=== PATIENT | female | born 1980 | race Caucasian/White ===

== ENCOUNTER 2019-12-04 05:15 | Day surgery (SDC) | payer MEDICAID ==
[2019-12-02 15:20] LABS: BASOPHILS 0.3 % (0-2); EOSINOPHILS 2.5 % (0-7); HEMATOCRIT 36.8 % (36.0-48.0); HEMOGLOBIN 11.7 g/dL (12-16); IMMATURE GRANULOCYTES 0.5 % (0-5); LYMPHOCYTES 20.8 % (15-50); MCH 26.2 pg (26.0-34.0); MCHC 31.8 g/dL (31.0-37.0); MCV 82.3 fL (80.0-100.0); MEAN PLATELET VOLUME 9.4 fL (7.4-10.4); MONOCYTES 8.3 % (2-11); NEUTROPHILS 67.6 % (40-80); PLATELET COUNT 339 10x3/uL (130-400); RBC 4.47 10x6/uL (4.00-5.40); RDW 14.2 % (11.5-14.5); WBC 12.9 10x3/uL (4.8-10.8)
[2019-12-02 15:37] LABS: CALC OSMOLALITY 279 mosm/kg (275-300); CALCIUM 8.2 mg/dL (8.5-10.1); CARBON DIOXIDE 28.8 mmol/L (21.0-32.0); CHLORIDE - SERUM 103 mmol/L (98-107); CREATININE - SERUM 0.8 mg/dL (0.6-1.3); GLUCOSE 95 mg/dL (74-106); POTASSIUM - SERUM 3.7 mmol/L (3.5-5.1); SODIUM 141 mmol/L (136-145); UREA NITROGEN 11 mg/dL (7-18); eGFR NON AFRICAN AMERICAN 85 mL/min (90-120)
[2019-12-04] VITALS (11 sets, daily range): BP systolic 91–109; BP diastolic 43–60; Ht 180.3 cm; Wt 125.5 kg
[~2019-12-04] VITALS: Ht 180.3 cm; Wt 125.5 kg
--- NOTE | ~2019-12-04 | OP ---
PATIENT NAME: VASU KEITH MEDICAL RECORD: [id number] :84 LOCATION:[place] [id number] ADMISSION DATE: SURGEON: SHONDA GODOY DO DATE OF OPERATION: 12/05/2019 PREOPERATIVE DIAGNOSIS: Abnormal uterine bleeding. POSTOPERATIVE DIAGNOSIS: Abnormal uterine bleeding. PRIMARY SURGEON: Shonda Godoy DO SITE PROMOTION AGENT SURGEON: Dr. Ballesteros. ANESTHESIA: General ET tube. PROCEDURE: Total laparoscopic hysterectomy and bilateral salpingectomy. FINDINGS: The patient with extensive sores noted on her abdomen and legs. Due to this, a drug screen was performed. The patient is previous drug user and states had been clean since February. Urine drug screen positive for amphetamine, benzos and THC. After general anesthesia was administered. Normal-appearing external genitalia. Normal-appearing vaginal vault. Uterus sounded to 9 cm. Normal appearing uterus, fallopian tubes with a previous tubal ligation noted. Normal appearing bilateral ovaries. SPECIMENS: Uterine portion of bilateral fallopian tubes and cervix. ESTIMATED BLOOD LOSS: 50 cc. IV FLUID: 1800 cc. URINE OUTPUT: 250 cc urine and 250 cc milk. COMPLICATIONS: None. CONDITION: Stable. PROCEDURE IN DETAIL: The risks, benefits, alternatives, and indications of the procedure were discussed with the patient. She voiced understanding of the procedure and signed a consent. She was taken to the OR where general anesthesia was administered and found to be adequate. She was placed in the dorsal lithotomy position. She was prepped and draped in the normal sterile fashion. A speculum was placed in the posterior aspect of the vagina. Single tooth tenaculum was used to grasp the anterior lip of the cervix. The uterus was sounded to 9 cm. The cervix was further dilated to accommodate the VCare uterine manipulator and the uterine manipulator was placed without incident. All other instruments were removed from the vagina. A Teran catheter was placed under sterile conditions. Gloves were changed and attention was then turned to the abdomen. The abdomen was elevated. Marcaine was placed in the umbilical fold and a 5-mm port was placed with the laparoscope for visualization. Pneumoperitoneum was achieved to 15 mmHg. An intraabdominal survey revealed extensive adhesions of the bladder to the lower uterine segment of the uterus. A 5-mm port was placed under direct laparoscopic visualization in the right lower quadrant 2 cm superior and 2 cm medial to the right ASIS. An 11-mm port was placed in the left lower quadrant 2 cm superior and 2 cm medial to the left OPERATIVE REPORT [id number] VASU KEITH under direct laparoscopic visualization without difficulty. The uterus was elevated out of the abdomen. The patient was placed in steep Trendelenburg position. The uterine cornua was grasped with an atraumatic grasper and the uterus was gently retracted to the opposite side. The ureter was seen across the external iliac artery and pelvic brim with peristalsis. The left fimbria was removed using the Thunderbeat device with good hemostasis and sent to pathology. The left round ligament was then coagulated and cut with the Thunderbeat device. The vesicouterine peritoneum was opened with the Thunderbeat as well as the EndoShears due to extensive adhesions of the bladder to the lower uterine segment. The right fallopian tube was then removed with the Thunderbeat device and the right round ligament was coagulated and cut and the vesicouterine peritoneum was opened on that side. Due to the extensive adhesions, need for a fourth port was determined and a 5-mm port was placed 2 cm superior to the pubic ramus in the midline with the laparoscope for visualization. The bladder was dissected off the lower uterine segment with the combination of the Thunderbeat device as well as the EndoShears. Due to need for delineation of the bladder edge, the bladder was filled with sterile milk and no bladder leak was noted after dissection off the lower uterine segment. The uterine vessels were then identified along the uterus and a Thunderbeat device was used to coagulate and cut the uterine vessels. With the VCare uterine manipulator pushing the uterus into the pelvis, the cervical vaginal junction was delineated by the colpotomy ring, which was apparent through the tissue. The vagina was entered with the PK device and incised circumferentially along the cervicovaginal junction. Uterosacral and cardinal ligament complex of the vagina were completely detached from the cervix. Bleeding spots were coagulated and the uterus was removed through the vagina. The vaginal cuff was closed laparoscopically with 0 Stratafix suture and cT2 needle in a running fashion with good hemostasis. The pelvis was irrigated with warm sterile water and good hemostasis was noted. The patient was taken out of Trendelenburg position and good hemostasis was noted at the low insufflation of pressure. All instruments were removed from the abdomen. The abdominal incisions were closed with 3-0 Monocryl and Dermabond covering. The patient tolerated the procedure well. All counts were correct times 2. The patient was awakened and taken to the recovery room in stable condition. TRANSINT:[id number] Voice Confirmation ID: [id number] DOCUMENT ID: [id number] SHONDA GODOY DO CC: [id number] DICTATION DATE: 12/05/19 104 DIRECTOR TRANSLATIONAL: 12/05/19 1212 [place] [id number] [place] [id number]
[~2019-12-04 05:15] MED LIST: CELEXA40 MG PO; IBUPROFEN800 MG PO; LISINOPRIL5 MG PO; NEURONTIN600 MG PO
[2019-12-04 06:24] LABS: HCG URINE NEGATIVE (NEGATIVE)
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
[2019-12-04 08:28] LABS: UDS - AMPHET POSITIVE QUAL (NEGATIVE); UDS - BARB NEGATIVE QUAL (NEGATIVE); UDS - BENZO POSITIVE QUAL (NEGATIVE); UDS - COCAINE NEGATIVE QUAL (NEGATIVE); UDS - OPIATE NEGATIVE QUAL (NEGATIVE); UDS - PCP NEGATIVE QUAL (NEGATIVE); UDS - THC POSITIVE QUAL (NEGATIVE)
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
--- NOTE | 2019-12-04 13:00 | NUR ---
PT LYING IN SEMI-CRAIG'S POSITION IN BED. EYES CLOSED. RESP NON-LABORED. VSS. PT NOT DISTURBED TO ALLOW FOR REST.
--- NOTE | 2019-12-04 14:10 | NUR ---
DR SALAZAR NOTIFIED OF PT ORDER FOR DC CUBA, NO ORDER FOR IV FLUIDS OR SALINE LOCK IV. ORDERS RECEIVED.
--- NOTE | 2019-12-04 15:00 | NUR ---
PIV CONVERTED TO SALINE LOCK. FLUSHES EASILY WITH 10 ML NS. SITE CLEAR. RETAPED AND SECURED. CUBA DC'D WITH 350 ML OF MILKY FLUID NOTED IN BAG. PT OOB AND AMB TO BR. UNABLE TO VOID AT THIS TIME. PERIPAD AND PANTIES ON. PT AMB BACK TO BED. CHIQUIS ACTIVITY WELL.
--- NOTE | 2019-12-04 15:50 | NUR ---
TORADOL 10 MG GIVEN PO ORDERED. PT INSTRUCTED ON MED. VERBALIZES UNDERSTANDING.
--- NOTE | 2019-12-04 17:20 | NUR ---
PT UP TO BR. VOIDS 150 ML OF CONCENTRATED URINE. PERICARE DONE PER PT. SMALL AMT OF BROWN DISCHARGE NOTED ON PERIPAD. PT AMB BACK TO BED. CHIQUIS ACTIVITY WELL.
--- NOTE | 2019-12-04 17:57 | NUR ---
PT AMBULATORY IN HALLS.
--- NOTE | 2019-12-04 18:40 | NUR ---
PT IN SEMI-CRAIG'S POSITION IN BED. WAKES UPON VERBAL STIMULATION. PT DENIES NEEDS. FRESH ICE PACK TO INCISIONS. WET WASHCLOTHS PROVIDED PER PT REQUEST TO WASH FACE.
--- NOTE | 2019-12-04 19:11 | NUR ---
PM ROUNDS MADE, PT VISITING WITH MOTHER, INFORMED PT THAT I WILL BE BACK SHORTLY TO DO ASSESSMENT, PT VERBALIZES UNDERSTANDING, DENIES PAIN, STATES "IT'S JUST SORE FEELING", DENIES NEEDS AT THIS TIME
--- NOTE | 2019-12-04 19:28 | NUR ---
PT AMB IN [place], GAIT STEADY, WITH MOTHER AT SIDE
--- NOTE | 2019-12-04 19:34 | NUR ---
PT BACK TO ROOM
--- NOTE | 2019-12-04 20:30 | NUR ---
ASSESSMENT PER FLOW SHEET, VS OBTAINED, SALINE LOCK IN RIGHT WRIST INTACT WITH NO REDNESS OR EDEMA, 3 LAP AND 1 UMB INC WITH DERMBOND CDI WITH NO DRAIANGE NOTED, FRESH ICE PACK, PT DENIES FLATUS, NO BM AND VOIDING WITH NO DIFFICULTY, SCD'S PLACED ON AND WORKING PROPERLY, PT DENIES NEEDS OR PAIN AT THIS TIME, BED IN LOW POSITION, SIDE RAILS X 2, CALL LIGHT IN REACH, BEDDING PROVIDED TO PT'S MOM
--- NOTE | 2019-12-04 21:50 | NUR ---
PT RESTING WITH EYES CLOSED, AROUSES TO SOFT VERBAL STIMULATION, ADM NEURONTIN AND TORADOL PO PER MD ORDERS, SEE EMAR, PT DENIES NEEDS AT THIS TIME
--- NOTE | 2019-12-04 22:33 | NUR ---
PT RESTING WITH EYES CLOSED, RESP QUIET, NO DISTRESS NOTED LEFT UNDISTURBED AT THIS TIME, PT'S MOM ASLEEP AT BEDSIDE
--- NOTE | 2019-12-04 23:39 | NUR ---
PT RESTING WITH EYES CLOSED, AROUSES TO SOFT VERBAL STIMULATION, VS OBTAINED, PT UP TO BR, GAIT STEADY, VOIDED 300 MLS OF DARK YELLOW URINE BY SELF WITH NO DIFFICULTY, PT BACK TO BED, SCD'S RECONNECTED, SALINE LOCK CONVERTED TO IV, FLUSHED WITH 10MLS OF NS WITH NO DIFFICULTY, CLINDAMYCIN HUNG IVPB PER MD ORDERS, SEE EMAR, FRESH ICE PACK TO ABD, PT DENIES FURTHER NEEDS OR PAIN, PT'S MOM AT BEDSIDE
--- NOTE | 2019-12-05 00:22 | NUR ---
PT RESTING WITH EYES CLOSED, RESP QUIET, NO DISTRESS NOTED, LEFT UNDISTURBED AT THIS TIME, PT'S MOM ASLEEP AT BEDSIDE
--- NOTE | 2019-12-05 01:00 | NUR ---
IV BEEPING, IV CONVERTED TO SALINE LOCK, PT DENIES NEEDS AT THIS TIME
--- NOTE | 2019-12-05 02:17 | NUR ---
PT RESTING WITH EYES CLOSED, RESP QUIET, NO DISTRESS NOTED, LEFT UNDISTURBED AT THIS TIME, PT'S MOM ASLEEP AT BEDSIDE
[2019-12-05 04:26] VITALS: BP 102/42
--- NOTE | 2019-12-05 04:26 | NUR ---
PT RESTING WITH EYES CLOSED, AROUSES TO SOFT VERBAL STIMULATION, VS OBTAINED, ADM TORADOL PER MD ORDERS, SEE EMAR, SCD'S DISCONNECTED, PT UP TO BR, GAIT STEADY, VOIDED 250 MLS OF DARK YELLOW URINE, PT BACK TO BED, SCD'S RECONNECTED AND WORKING PROPERLY, PT SERVED FRESH H20, FRESH ICE PACK TO ABD, PT DENIES FURTHER NEEDS, PT'S MOM AT BEDSIDE
--- NOTE | 2019-12-05 05:53 | NUR ---
PT RESTING WITH EYES CLOSED, RESP QUIET, NO DISTRESS NOTED, LEFT UNDISTURBED AT THIS TIME, PT'S MOM ASLEEP AT BEDSIDE
--- NOTE | 2019-12-05 08:20 | NUR ---
DR. GODOY HERE TO SEE PT. ORDERS RECEIVED.
[2019-12-05 09:05] LABS: BASOPHILS 0.2 % (0-2); EOSINOPHILS 0.9 % (0-7); HEMATOCRIT 33.8 % (36.0-48.0); HEMOGLOBIN 10.4 g/dL (12-16); IMMATURE GRANULOCYTES 0.4 % (0-5); LYMPHOCYTES 29.4 % (15-50); MCH 25.9 pg (26.0-34.0); MCHC 30.8 g/dL (31.0-37.0); MCV 84.3 fL (80.0-100.0); MEAN PLATELET VOLUME 9.2 fL (7.4-10.4); MONOCYTES 9.4 % (2-11); NEUTROPHILS 59.7 % (40-80); PLATELET COUNT 305 10x3/uL (130-400); RBC 4.01 10x6/uL (4.00-5.40); RDW 14.8 % (11.5-14.5); WBC 11.2 10x3/uL (4.8-10.8)
--- NOTE | 2019-12-05 09:15 | NUR ---
SLEEPING. MOTHER AT BEDSIDE.
[2019-12-05 10:30] VITALS: BP 111/52
--- NOTE | 2019-12-05 10:30 | NUR ---
ASSESSMENT COMPLETE. SEE FLOWSHEET. PT. C/O PAIN. SCHEDULED PAIN MEDS GIVEN.
--- NOTE | 2019-12-05 10:30 | NUR ---
AMBULATING IN HALLWAY WITH MOTHER.
--- NOTE | 2019-12-05 11:15 | NUR ---
SLEEPING. MOTHER AT BEDSIDE.
--- NOTE | 2019-12-05 12:47 | NUR ---
DR. GODOY NOTIFIED OF CBD RESULTS. PLANNING TO COME SEE PT. THIS AFTERNOON.
--- NOTE | 2019-12-05 12:55 | NUR ---
DR. GODOY CALLED TO UNIT. ORDERS RECEIVED TO DISCHARGE PATIENT HOME NO NARCOTIC PRESCRIPTIONS WILL BE WRITTEN. NON-NARCOTIC PAIN MEDS WILL BE CALLED TO PT'S PREFERRED PHARMACY BY DR. GODOY.
--- NOTE | 2019-12-05 14:25 | NUR ---
REVIEWED DISCHARGE INSTRUCTIONS WITH PATIENT. PT STATES UNDERSTANDING. INFORMED PATIENT PRESCRIPTIONS HAVE BEEN CALLED BY DR. GODOY TO HER PREFERRED PHARMACY. FOLLOW-UP APPOINTMENT GIVEN. IV D/C'D. CATHETER INTACT. PRESSURE APPLIED. NO BLEEDING NOTED. BANDAGE APPLIED TO IV SITE.
--- NOTE | 2019-12-05 14:40 | NUR ---
PT DISCHARGED HOME VIA WHEELCHAIR TO PRIVATE VEHICLE ACCOMPANIED BY FAMILY MEMBER AND HOSPITAL STAFF.
== END 2019-12-05 14:35 | disposition home or self-care (01) ==
LOC: D.OPS 05:15 → D.PAN 07:00 → D.WS 11:31 → D.OPS 12-05 14:35
PROVIDERS: ATTEND Student in an Organized Health Care Education/Training Program
DX: N93.9 Abnormal uterine and vaginal bleeding, unspecified (principal)